=== PATIENT | male | born 1950 | race Caucasian/White ===

== ENCOUNTER 2021-01-12 12:17 | Outpatient (CLI) | payer MEDICARE, SELFPAY | END 2021-01-12 12:18 | disposition home or self-care (01) | LOC: CHSLAB 12:22 | PROVIDERS: PCP Family Medicine; Visit Provider Specialist | DX: L73.9 Follicular disorder, unspecified (principal) | CPT/HCPCS: 88305 ==

== ENCOUNTER 2022-01-11 11:52 | Outpatient (CLI) | payer MEDICARE, SELFPAY | END 2022-01-11 11:53 | disposition home or self-care (01) | LOC: CHSOUTPT 11:58 | PROVIDERS: PCP Specialist; Visit Provider Specialist | DX: C44.319 Basal cell carcinoma of skin of other parts of face (principal) | CPT/HCPCS: 88305 ==